=== PATIENT | male | born 1940 | race Caucasian/White ===

== ENCOUNTER → 2018-12-23 | Day surgery (SDC) | payer MEDICARE, MEDICAID ==
[~2018-12-23] VITALS: Ht 152.4 cm; Wt 59.0 kg
[~2018-12-23] MED LIST: ACETAMINOPHEN 325MG TABLET PO PRN; ARAV20 PO; ASPI-1158 MT; ASPIRIN/SOD BICARB/CITRIC ACID 324MG TAB EFF ONE; ATROPINE SULFATE 1MG/10ML SYR IV PRN; CILO50TA MT; CLOP75TA33 PO; DILT180C66 PO; DILT180T11 PO; FENTANYL CITRATE/PF 50MCG/ML 2ML VIAL ONE; FINA5TAB11 MT; GABA-529 PO; HEPARIN SODIUM 1,000 UNIT/1ML VIAL IV ONE; INSU100C6 SQ; INSU100I33 SQ; IODIXANOL 320MG/ML 100 ML BOTTLE IV ONE; LEFL20TA17 PO; LEVO125T8 PO; LIDOCAINE HCL 1% 20ML VIAL (Pyxis) INJ ONE; LISI-186 MT; MAGN400T29 PO; MIDAZOLAM HCL 2 MG/2 ML VIAL ONE; MORPHINE SULFATE 2 MG/ML CPJ (NOT FOR IM USE) IV PRN; NIFE30TA94 PO; OMEP20CA5 PO; ONDANSETRON HCL 4MG/2ML INJ IV PRN; PRAV10TA35 MT; PRED5TAB PO; SULF1TAB75 PO; TACR1CAP19 PO; TAMS-11 PO; [UNRECOGNIZED DRUG - CODE] PO; [UNRECOGNIZED DRUG - CODE] PO
[2018-12-23 08:44] LABS: HEMOGLOBIN 13.1 g/dL (14.0-18.0); MEAN CORPUSCULAR HEMOGLOBIN 33.9 pg (28.0-32.0); MEAN CORPUSCULAR VOLUME 98.3 fL (80.0-94.0); PLATELET 170 x1000/uL (130-400); RED BLOOD CELL COUNT 3.86 mill/uL (4.7-6.1); RED CELL DISTRIBUTION WIDTH 13.3 % (11.6-14.6)
== END | disposition home or self-care (01) ==
LOC: CCL 07:01
PROVIDERS: ATTEND Specialist
DX: I25.10 Atherosclerotic heart disease of native coronary artery without angina pectoris (principal); E11.9 Type 2 diabetes mellitus without complications; I10 Essential (primary) hypertension; E78.5 Hyperlipidemia, unspecified; M17.11 Unilateral primary osteoarthritis, right knee; E78.00 Pure hypercholesterolemia, unspecified; E11.42 Type 2 diabetes mellitus with diabetic polyneuropathy; E11.51 Type 2 diabetes mellitus with diabetic peripheral angiopathy without gangrene; K21.9 Gastro-esophageal reflux disease without esophagitis; E03.9 Hypothyroidism, unspecified; Z79.899 Other long term (current) drug therapy; Z83.3 Family history of diabetes mellitus
CPT/HCPCS: 36415; 85027; 93454; 99152; 99153; C1760; C1769; C1893; J1644; J2250; J3010; J3490; Q9967; G0500